=== PATIENT | female | born 2000 | race Caucasian/White ===

== ENCOUNTER 2023-06-06 02:09 | Emergency (ER) | payer OTHER, SELFPAY ==
[2023-06-06 02:17] VITALS: BP 118/72; PULSE 77; RESP 16; TEMP 36.7; O2SAT 98; BMI 23.4
[2023-06-06] MEDS: MAG HYDROX/ALUMINUM HYD/SIMETH 30 ML ORAL.SUSP PO (02:42)
[2023-06-06] MEDS: OMEPRAZOLE 20 MG CAPSULE DR PO (02:42)
--- NOTE | 2023-06-06 03:36 | ED_ITS ---
HPI - General Adult General Chief complaint: Heartburn/Gastritis Stated complaint: Severe heartburn /abdominal pain Time Seen by Provider: 06/06/23 02:24 Source: patient Mode of arrival: ambulatory Limitations: no limitations History of Present Illness HPI narrative: 22-year-old female presents the emergency department with a 4 hour history of heartburn. Reports epigastric discomfort and sense of acid in her esophagus and throat. No shortness of breath, no exertional symptoms, no cardiac symptoms. Reports that this happens every so often, last was most bothersome right after Thanksgiving. She does not drink a lot of alcohol or carbonated beverages but does report use of a powdered pre workout supplement most mornings. These do contain large amounts of caffeine. Denies any abdominal trauma or injury. She tried taking 1 Pepcid tablet and Pepto-Bismol with no significant improvement in her symptoms. There was no emesis, her appetite has been normal. She is tolerating liquids fine there was no bloody stools or diarrhea. Did not try any other treatments. Reports that she has seen a GI specialist in the past for irritable bowel syndrome. It sounds like she has had negative celiac testing in the past but she is uncertain if she has had H pylori testing. No prior endoscopy. Past medical history benign per her report. No long-term home medications. Allergies are to sulfas. Nonsmoker. ROS notable for the GI symptoms as above only, otherwise denies times 12 systems. Related Data Home Medications Medication Instructions Recorded Confirmed No Known Home Medications 06/06/23 06/06/23 Allergies Allergy/AdvReac Type Severity Reaction Status Date / Time sulfamethoxazole AdvReac Verified 06/06/23 02:19 [From Bactrim] trimethoprim [From Bactrim] AdvReac Verified 06/06/23 02:19 [facility] Social History Smoking Status: Never smoker Do you use any of these nicotine containing products: None How often do you have a drink containing alcohol: never AUDIT-C Alcohol total score: 0 Non-prescribed substance use: denies use Exam Const: Vital Signs, click to edit/add: Vital Signs - 24 hr 06/06/23 02:17 Temperature 98.1 F Pulse Rate [Pulse Oximeter] 77 Respiratory Rate 16 Blood Pressure [Le ft Upper Arm] 118/72 Pulse Oximetry 98 Oxygen Delivery Me thod Room Air Documenting provider has reviewed patient's vital signs: yes Common normals: no apparent distress General appearance: cooperative, comfortable and well kempt HENMT: Common normals: normocephalic and head/scalp atraumatic Head and scalp: normocephalic and atraumatic Mouth: oral and palatal mucosa normal Eye: Common normals: conjunctivae normal General eye: normal appearance of both eyes Conjunctiva: conjunctiva(e) normal Neck & C-Spine: Common normals: full ROM and no lymphadenopathy Resp: Common normals: normal respiratory effort and no use of accessory muscles Effort & inspection: able to speak in complete sentences Cardio: Common normals: regular rate, regular rhythm, S1 normal heart sound, S2 normal heart sound and no murmurs Rate: regular rate Rhythm: regular rhythm Heart sounds: S1 normal and S2 normal GI: Common normals: Normal to inspection, nondistended, normoactive bowel sounds present, soft to palpation, non-tender, no hepatosplenomegaly and no masses Palpation: soft and no hepatosplenomegaly Neuro: Common normals: moves all extremities and no focal motor deficits Speech: speech normal Psych: Appearance: well kempt Activity/motor behavior: appropriate eye contact Insight: insight good Judgement: judgment good Skin: Common normals: no rashes or lesions noted General skin exam: no rashes or lesions noted Course Course ED Course: Reassuring history and exam. Suspect mild gastritis. There are no features of ulcer, GI bleed, weight loss, pancreatitis, trauma or other concerns that would warrant lab or imaging. Discussed this with patient. Recommended a trial of 2 weeks of [id number] omeprazole, a single dose of Maalox today. Discontinue pre workout supplement. Follow-up with primary care if not improving in 2 weeks time for discussion of H pylori testing and or referral for endoscopy. She verbalized understanding and agreement. Alarm symptoms reviewed that would warrant ED presentation. Vital Signs Vital signs: Initial Vital Signs Temperature 98.1 F 06/06/23 02:17 Temperature Source Temporal Artery Scan 06/06/23 02:17 Pulse Rate 77 06/06/23 02:17 Respiratory Rate 16 06/06/23 02:17 Blood Pressure 118/72 06/06/23 02:17 Blood Pressure Mean 87 06/06/23 02:17 Blood Pressure Position Sitting 06/06/23 02:17 Pulse Oximetry 98 06/06/23 02:17 Oxygen Delivery Method Room Air 06/06/23 02:17 Vital Signs Temperature 98.1 F 06/06/23 02:17 Pulse Rate 77 06/06/23 02:17 Respiratory Rate 16 06/06/23 02:17 Blood Pressure 118/72 06/06/23 02:17 Pulse Oximetry 98 06/06/23 02:17 Oxygen Delivery Method Room Air 06/06/23 02:17 Temperature 98.1 F 06/06/23 02:17 Pulse Rate 77 06/06/23 02:17 Respiratory Rate 16 06/06/23 02:17 Blood Pressure 118/72 06/06/23 02:17 Pulse Oximetry 98 06/06/23 02:17 Oxygen Delivery Method Room Air 06/06/23 02:17 Medications Administered Medications: Discontinued Medications Generic Name Dose Route Start Last Admin Trade Name Wyatt PRN Reason Stop Dose Admin Lidocaine/Aluminum/Magnesium/Simeth 30 ml 06/06/23 02:40 06/06/23 02:42 Mag Hydrox/Aluminum Hyd/Simeth 30 Ml Oral.Susp PO 06/06/23 02:41 30 ml ONCE ONE Administration Omeprazole 20 mg 06/06/23 02:40 06/06/23 02:42 Omeprazole [address] PO 06/06/23 02:41 20 mg ONCE ONE Administration Discharge Plan Discharge Clinical Impression: Gastritis Patient Disposition: Home w/ Parent or Adult Condition: Stable Instructions: Gastritis (ED) Additional Instructions: As we discussed, there do not seem to be any signs of dangerous etiology for your heartburn today. Your exam is not suggestive of bleeding ulcer, severe infection or gallbladder disease. For many, this problem worsens with age. I would recommend that you discontinue any carbonated beverages, caffeinated beverages like pre workout supplements and limit your alcohol. I would like for you to start taking an [id number] medicine called omeprazole. You will use this in the evening, 30 minutes before meal for the next 2 weeks. For most people, this heals any irritation and your symptoms improved markedly. If this is the case for you, continue the medication for 6 weeks total and then discontinue. If her symptoms flare up again, use the medication for a couple of weeks until your symptoms resolve again. It is safe to take every day, but is often not necessary. For many people, once they get their symptoms under control on the omeprazole for a couple of weeks, they can switch to a dental or medicine like Pepcid and use that daily to prevent symptoms. Pepcid is safe daily for long-term use. Please call in the morning and make a follow-up appointment in the clinic for a couple of weeks for now. If your symptoms have not improved, I would recommend that they do further testing like H pylori testing and/or consideration for an endoscopy. It sounds as though you have already had negative testing for celiac disease, that is reassuring. If your symptoms have improved markedly, it is okay to cancel that appointment. If he start running high fever, have bloody vomit and or persistently bloody stools, you should seek re-evaluation. Activity Level: No Restrictions Discharge Diet: Regular Prescriptions: No Action No Known Home Medications Stand Alone Forms: [employer] Info Instructions
== END 2023-06-06 03:12 | disposition home or self-care (01) ==
LOC: ED 03:04
PROVIDERS: Emergency Provider Family Medicine
DX: K29.70 Gastritis, unspecified, without bleeding (principal)
CPT/HCPCS: 99283; A9270